=== PATIENT | male | born 1960 | race Caucasian/White ===

== ENCOUNTER 2018-08-13 18:10 | Observation (INO) | payer MEDICAID, OTHER ==
[~2018-08-13] VITALS: Ht 188 cm; Wt 70.7 kg
[2018-08-13] MEDS ORDERED: diphenhydrAMINE 25mg capsule PO ONE (19:15)
[2018-08-13] MEDS ORDERED: OLANZapine 2.5MG tablet PO ONE (19:20)
[2018-08-13 19:43] LABS: BASOPHILS % (AUTO) 0.3 % (0-1); EOSINOPHILS % (AUTO) 0.2 % (0-6); HEMATOCRIT 39.2 % (42.0-52.0); HEMOGLOBIN 13.6 g/dl (14.0-17.9); LYMPHOCYTES # (AUTO) 0.9 X10'3 (1.1-4.8); LYMPHOCYTES % (AUTO) 8.5 % (21-51); MEAN CORPUSCULAR HEMOGLOBIN 31.2 PG (27.0-31.0); MEAN CORPUSCULAR HGB CONC 34.7 g/dL (33.0-36.5); MEAN PLATELET VOLUME 9.2 FL (7.4-10.4); MONOCYTES # (AUTO) 1.2 X10'3 (0-0.9); MONOCYTES % (AUTO) 10.8 % (2-12); NEUTROPHILS # (AUTO) 8.6 X10'3 (1.8-7.7); NEUTROPHILS % (AUTO) 80.2 % (42-75); PLATELET COUNT 253 X10'3 (140-440); RED BLOOD COUNT 4.36 X10'6 (4.70-6.10); RED CELL DISTRIBUTION WIDTH 14.2 % (11.5-14.5); WHITE BLOOD COUNT 10.7 X10'3 (4.5-11.0)
[2018-08-13 19:43] LABS: CLARITY,URINE CLEAR (Clear); COLOR,URINE YELLOW (Yellow); GLUCOSE, URINE NEGATIVE (Neg); KETONES,URINE 15 mg/dl (Neg); LEUKOCYTE ESTERASE ,URINE NEGATIVE (Neg); NITRITES, URINE NEGATIVE (Neg); OCCULT BLOOD,URINE TRACE-INTACT (Neg); PROTEIN,URINE NEGATIVE (Neg); UROBILINOGEN,URINE 0.2 E.U/dL (0.2-1.0)
[2018-08-13 19:49] LABS: ALANINE AMINOTRANSFERASE 27 U/L (12-78); ALBUMIN 3.6 G/DL (3.4-5.0); ALKALINE PHOSPHATASE 97 IU/L (46-116); ANION GAP 12 (8-16); ASPARTATE AMINO TRANSFERASE 30 U/L (10-37); BILIRUBIN,TOTAL 0.7 MG/DL (0.1-1.0); BLOOD UREA NITROGEN 7 MG/DL (7-18); BUN/CREATININE RATIO 7.1 (5.4-32.0); CALCIUM 8.5 MG/DL (8.5-10.1); CHLORIDE 92 MMOL/L (99-107); CREATININE 0.98 MG/DL (0.60-1.10); GLUCOSE 143 MG/DL (70-104); POTASSIUM 3.1 MMOL/L (3.5-5.1); SODIUM 126 MMOL/L (135-145); TOTAL PROTEIN 7.3 G/DL (6.4-8.2); eGFR 79 ML/MIN
[2018-08-13 19:49] LABS: UA COLLECTION TYPE CLN CATCH MIDSTREAM
[2018-08-13 19:50] LABS: BACTERIA,URINE NONE SEEN /HPF (Neg); RBC,URINE 0-2 /HPF (0-2); SQUAMOUS EPITHELIAL CELL,UR FEW /LPF (FEW); WBC,URINE NONE SEEN /HPF (0-4)
[2018-08-13 20:01] LABS: ETHANOL < 0.010 GM/DL (0.0-0.010)
--- NOTE | 2018-08-13 20:30 | NUR ---
PT CHANGED INTO GOWN AND BELONGING LIST COMPLETED. PT STATED HE IS FROM THE [facility] AND HAS SOCIAL ANXIETY SO WAS REFERRED TO COME HERE.
[2018-08-13 20:34] LABS: URINE AMPHETAMINE SCREEN NEGATIVE (Neg); URINE BARBITUATE SCREEN NEGATIVE (Neg); URINE BENZODIAZEPINES SCREEN NEGATIVE (Neg); URINE CANNABINOID SCREEN NEGATIVE (Neg); URINE COCAINE SCREEN NEGATIVE (Neg); URINE METHADONE SCREEN NEGATIVE (Neg); URINE OPIATE SCREEN NEGATIVE (Neg); URINE PHENCYCLIDINE SCREEN NEGATIVE (Neg)
--- NOTE | 2018-08-13 22:00 | NUR ---
Packet sent to [facility]. Confirmed receipt of packet with Gene @ [facility] office.
--- NOTE | 2018-08-13 23:00 | NUR ---
Pt resting comfortably, respirations normal, no s/s of distress.
--- NOTE | 2018-08-14 01:29 | NUR ---
Pt resting comfortably, respirations normal, no s/s of distress.
--- NOTE | 2018-08-14 05:58 | NUR ---
Pt sitting at bedside brushing teeth.
[2018-08-14] MEDS: olanzapine 10mg tablet PO SCH (08:13)
--- NOTE | 2018-08-14 09:25 | NUR ---
PT DRINKING EXCESSIVE WATER, GOING INTO BATHROOM WITH CONTAINER WHEN ASKED NOT TO. TOOK CONTAINER FROM PT AND EXPLAINED TO HIM EXCESSIVE DRINKING IS MAKING HIS SYSTEM, CALLED DIETARY REQUESTING BROTH, LEFT MESSAGE, LAB PRESENT AT THIS TIME
--- NOTE | 2018-08-14 09:48 | NUR ---
received broth from kitchen, consulted with dr. haji before giving broth as a sodium replacement and made him aware of pt excessive fluid intake.
[2018-08-14 09:52] LABS: ALBUMIN 3.5 G/DL (3.4-5.0); ANION GAP 8 (8-16); BILIRUBIN,TOTAL 0.7 MG/DL (0.1-1.0); BLOOD UREA NITROGEN 7 MG/DL (7-18); BUN/CREATININE RATIO 8.8 (5.4-32.0); CALCIUM 8.1 MG/DL (8.5-10.1); CHLORIDE 88 MMOL/L (99-107); GLUCOSE 120 MG/DL (70-104); POTASSIUM 3.1 MMOL/L (3.5-5.1); TOTAL CARBON DIOXIDE 24.4 MMOL/L (24-32); TOTAL PROTEIN 6.9 G/DL (6.4-8.2); eGFR > 90 ML/MIN
[2018-08-14 09:53] LABS: ALANINE AMINOTRANSFERASE 28 U/L (12-78); ALKALINE PHOSPHATASE 96 IU/L (46-116); ASPARTATE AMINO TRANSFERASE 25 U/L (10-37)
[2018-08-14 10:04] LABS: SODIUM 120 MMOL/L (135-145)
--- NOTE | 2018-08-14 10:10 | NUR ---
second cup of broth given to patient, each contain 1100 mg sodium. patient noted to be pacing earlier and was redirected.
[2018-08-14] MEDS ORDERED: mag hydrox/Alum hydrox/simeth 30ml oral suspension PO PRN (10:30)
[2018-08-14] MEDS ORDERED: magnesium Cl slow-release 64mg tablet PO PRN (10:30)
[2018-08-14] MEDS ORDERED: potassium Cl 40MEQ/NS 500ml 500 ML IV PRN (10:30)
[2018-08-14] MEDS ORDERED: potassium Cl 20 mEq SR tablet PO PRN ×2 (10:30)
[2018-08-14] MEDS ORDERED: potassium CL 10mEq/100ml bag 100 ML IV PRN (10:30)
[2018-08-14] MEDS ORDERED: ondansetron/PF 4mg/2ml inj IV PRN (10:30)
[2018-08-14] MEDS ORDERED: magnesium hydroxide 30ml (MOM) UD suspension PO PRN (10:30)
[2018-08-14] MEDS ORDERED: magnesium 4gm in 100ml NS 100 ML IV PRN (10:30)
[2018-08-14] MEDS ORDERED: acetaminophen 325mg tablet PO PRN (10:30)
[2018-08-14] MEDS ORDERED: magnesium 2GM in 50ml NS 50 ML IV PRN (10:30)
--- NOTE | 2018-08-14 10:31 | NUR ---
called [facility] at [phone] requested a current list of pt's medications, will fax to us.
[2018-08-14] MEDS ORDERED: RISP1TAB13 PO (10:40)
[2018-08-14] MEDS ORDERED: BENZ0.5T43 (10:42)
--- NOTE | 2018-08-14 10:47 | NUR ---
PT PUT ON 1200CC FLUID RESTRICTION PER DOCTOR NAOMI
[2018-08-14 13:50] LABS: ALBUMIN 3.6 G/DL (3.4-5.0); ANION GAP 7 (8-16); BLOOD UREA NITROGEN 6 MG/DL (7-18); BUN/CREATININE RATIO 8.7 (5.4-32.0); CALCIUM 8.5 MG/DL (8.5-10.1); CHLORIDE 95 MMOL/L (99-107); CREATININE 0.69 MG/DL (0.60-1.10); GLUCOSE 109 MG/DL (70-104); MAGNESIUM 2.1 MG/DL (1.5-2.4); POTASSIUM 3.5 MMOL/L (3.5-5.1); SODIUM 128 MMOL/L (135-145); TOTAL CARBON DIOXIDE 26.2 MMOL/L (24-32); eGFR > 90 ML/MIN
--- NOTE | 2018-08-14 13:56 | NUR ---
CALL FROM 3RD FLOOR TO LET US KNOW PT HAS A ROOM 49
[2018-08-14 15:09] VITALS: BP 129/69
--- NOTE | 2018-08-14 17:09 | NUR ---
Patient report was given to mckenzie patient. patient left via medi van. lisette cargo. IV and tele was removed from patient.
[2018-08-14 18:00] VITALS: BP 116/72
[2018-08-14 18:07] LABS: ALBUMIN 3.5 G/DL (3.4-5.0); ANION GAP 6 (8-16); BLOOD UREA NITROGEN 8 MG/DL (7-18); BUN/CREATININE RATIO 10.3 (5.4-32.0); CALCIUM 8.8 MG/DL (8.5-10.1); CHLORIDE 99 MMOL/L (99-107); CREATININE 0.78 MG/DL (0.60-1.10); GLUCOSE 99 MG/DL (70-104); POTASSIUM 3.7 MMOL/L (3.5-5.1); SODIUM 132 MMOL/L (135-145); TOTAL CARBON DIOXIDE 26.9 MMOL/L (24-32); eGFR > 90 ML/MIN
--- NOTE | 2018-08-14 18:10 | NUR ---
Report received from Lililan IVORY, assumed care of patient.
--- NOTE | 2018-08-14 19:00 | NUR ---
Pt up to nursing station saying he was ready to leave. Informed patient that he was admitted by the hospitalist as they want to monitor his labs and that he may be able to leave tomorrow. Pt verbalized understanding at this time and stated that he would stay.
[2018-08-14] MEDS: benztropine 1mg tablet PO SCH (19:21)
--- NOTE | 2018-08-14 21:21 | NUR ---
Pt up pacing back and forth in his room stating that he is bored. Pt has changed back into his street cloths as well. Will continue to monitor.
[2018-08-14 22:00] VITALS: BP 111/61
--- NOTE | 2018-08-15 05:38 | NUR ---
Pt agrees to have labs drawn after stating that he did not want them drawn as he just wants to be released. He was cooperative with the irrigation laborer and is now up pacing back and forth.
--- NOTE | 2018-08-15 05:52 | NUR ---
Pt lying back in bed at this time.
--- NOTE | 2018-08-15 05:58 | NUR ---
Pt up to nursing station stating that he needed an IV because he was losing potassium. Pt educated that his labs were drawn this morning and they were still pending. I also educated him that he did not need an IV at this time. Pt stated Okay and headed back to his room and is lying in bed.
[2018-08-15 06:04] LABS: BASOPHILS # (AUTO) 0.1 X10'3 (0-0.2); BASOPHILS % (AUTO) 0.8 % (0-1); EOSINOPHILS # (AUTO) 0.1 X10'3 (0-0.9); EOSINOPHILS % (AUTO) 0.7 % (0-6); HEMOGLOBIN 14.4 g/dl (14.0-17.9); LYMPHOCYTES % (AUTO) 22.1 % (21-51); MEAN CORPUSCULAR HGB CONC 34.4 g/dL (33.0-36.5); MEAN CORPUSCULAR VOLUME 90.2 FL (78-98); MEAN PLATELET VOLUME 8.8 FL (7.4-10.4); MONOCYTES % (AUTO) 11.4 % (2-12); NEUTROPHILS # (AUTO) 5.8 X10'3 (1.8-7.7); PLATELET COUNT 306 X10'3 (140-440); RED BLOOD COUNT 4.66 X10'6 (4.70-6.10); RED CELL DISTRIBUTION WIDTH 14.5 % (11.5-14.5); WHITE BLOOD COUNT 8.9 X10'3 (4.5-11.0)
--- NOTE | 2018-08-15 06:18 | NUR ---
RECEIVED REPORT FROM SHAHRAM IVORY
--- NOTE | 2018-08-15 06:18 | NUR ---
Report given to Lillian IVORY.
[2018-08-15 06:41] LABS: ALBUMIN 3.8 G/DL (3.4-5.0); ANION GAP 10 (8-16); BLOOD UREA NITROGEN 7 MG/DL (7-18); BUN/CREATININE RATIO 8.5 (5.4-32.0); CALCIUM 8.8 MG/DL (8.5-10.1); CHLORIDE 100 MMOL/L (99-107); CREATININE 0.82 MG/DL (0.60-1.10); GLUCOSE 98 MG/DL (70-104); MAGNESIUM 2.1 MG/DL (1.5-2.4); POTASSIUM 3.6 MMOL/L (3.5-5.1); SODIUM 134 MMOL/L (135-145); TOTAL CARBON DIOXIDE 23.6 MMOL/L (24-32); eGFR > 90 ML/MIN
[2018-08-15] MEDS: benztropine 1mg tablet PO SCH (07:49)
[2018-08-15] MEDS: olanzapine 10mg tablet PO SCH (07:49)
[2018-08-15 07:53] VITALS: BP 114/64
[2018-08-15] MEDS ORDERED: K and/or MAG REPLACEMENT MC SCH (08:00)
[2018-08-15] MEDS ORDERED: enoxaparin 40mg/0.4ml syringe SQ SCH (08:00)
--- NOTE | 2018-08-15 08:16 | NUR ---
Patient took his bag, and started walking down the [place]. Called out his name, no response. [facility], [facility]. Recalled security after seeing him at the bus stop.
--- NOTE | 2018-08-15 08:39 | NUR ---
called dr. casiano informed him that the patient left.
--- NOTE | 2018-08-15 08:40 | NUR ---
Spoke with Nursing Waiter/[employer]eteria, and Security regarding patient leaving. No need to call [employer], patient left AMA.
== END 2018-08-15 08:15 | disposition left against medical advice (07) ==
LOC: ER 18:12 → ORTHO 4S 08-14 14:16
PROVIDERS: ADMIT Hospitalist; ATTEND Hospitalist
DX: F41.9 Anxiety disorder, unspecified (principal); F45.9 Somatoform disorder, unspecified; R63.1 Polydipsia; E87.1 Hypo-osmolality and hyponatremia
CPT/HCPCS: 36415; 80048; 80053; 80305; 80320; 81001; 83735; 84443; 85025; 87081; 99284; G0378; Q0163; 99285; J1650